=== PATIENT | male | born 2000 | race Caucasian/White ===

== ENCOUNTER → 2020-05-23 | Outpatient (CLI) | payer OTHER | LOC: COL.RAD 11:04 | DX: J34.89 Other specified disorders of nose and nasal sinuses (principal) ==

== ENCOUNTER 2021-04-19 15:00 | Emergency (ER) | payer OTHER ==
[~2021-04-19] VITALS: Ht 177.8 cm; Wt 70.9 kg
[2021-04-19 15:06] VITALS: BP 147/93; TEMP 97.5
[2021-04-19 15:50] VITALS: PULSE 75
== END 2021-04-19 15:50 | disposition home or self-care (01) ==
LOC: COL.ER 15:00
DX: S06.0X0A Concussion without loss of consciousness, initial encounter (principal); S01.111A Laceration without foreign body of right eyelid and periocular area, initial encounter; F17.200 Nicotine dependence, unspecified, uncomplicated; X58.XXXA Exposure to other specified factors, initial encounter; Y93.63 Activity, rugby

== ENCOUNTER → 2021-04-25 | Emergency (ER) | payer OTHER ==
[2021-04-25 15:21] VITALS: BP 123/66; PULSE 89; TEMP 98.2
== END ==
LOC: COL.ER 13:55
DX: Z48.02 Encounter for removal of sutures (principal)